=== PATIENT | male | born 1970 | race Caucasian/White ===

== ENCOUNTER → 2023-06-01 | Outpatient (CLI) | payer SELFPAY | LOC: LAB SHORT 08:25 → LAB 08:25 | DX: C04.1 Malignant neoplasm of lateral floor of mouth (principal); Z72.0 Tobacco use | CPT/HCPCS: 88305 ==

== ENCOUNTER → 2023-11-10 | Outpatient (CLI) | payer OTHER | END | disposition home or self-care (01) | LOC: LAB SHORT 14:16 → LAB 14:16 | DX: E03.9 Hypothyroidism, unspecified (principal) | CPT/HCPCS: 84443 ==

== ENCOUNTER → 2024-01-31 | Outpatient (CLI) | payer OTHER ==
[2024-01-31 20:17] LABS: CHOL/HDL RATIO 3.7; Cholesterol 231 mg/dL (50-200); Free Thyroxine 0.33 ng/dL (0.70-1.60); HDL Cholesterol 63 mg/dL (>39); LDL/HDL RATIO 2.2; Low Density Lipoprotein Chol 137 mg/dL (0-110); Triglycerides 156 mg/dL (30-160); Very Low Density Lipoprot Chol 31 mg/dL (6-32)
== END ==
LOC: LAB SHORT 16:54 → LAB 16:54
PROVIDERS: Family Medicine
DX: E03.9 Hypothyroidism, unspecified (principal); E66.09 Other obesity due to excess calories
CPT/HCPCS: 80061; 83036; 84439; 84443

== ENCOUNTER → 2024-09-03 | Outpatient (CLI) | payer OTHER ==
[2024-09-03 21:44] LABS: CHOL/HDL RATIO 2.5; Cholesterol 190 mg/dL (50-200); HDL Cholesterol 75 mg/dL (>39); LDL/HDL RATIO 1.3; Low Density Lipoprotein Chol 98 mg/dL (0-110); Thyroid Stimulating Hormone 26.700 uIU/mL (0.360-4.800); Triglycerides 85 mg/dL (30-160); Very Low Density Lipoprot Chol 17 mg/dL (6-32)
== END ==
LOC: LAB SHORT 16:16 → LAB 16:16
PROVIDERS: Family Medicine
DX: E03.9 Hypothyroidism, unspecified (principal); E78.00 Pure hypercholesterolemia, unspecified
CPT/HCPCS: 80061; 84439; 84443